=== PATIENT | female | born 1930 | race American Indian/Alaskan Native ===

== ENCOUNTER 2021-05-07 16:00 | Emergency (ER) | payer MEDICARE, OTHER ==
[2021-05-07 19:12] VITALS: BP 146/56
--- NOTE | 2021-05-07 19:26 | Emergency Department Report ---
ED General Adult HPI - General Stated complaint: BILATERAL HIP PAIN Time Seen by Provider: 05/07/21 19:25 - History of Present Illness Initial comments: Patient presents secondary to intermittent bilateral hip pain. This is been intermittent and subacute. She states that she sometimes has pain and sometimes not. Today, she actually states that she feels very well. Her friends and family told her that she could not get seen because of her age and that she "could have something wrong." Patient states that currently, she just like to go home. She has not been having chest pain or shortness of breath. She has no back pain. There is no history of trauma. Pain is occasional in the hips and aching in nature. It is worse when she ambulates. But this does not happen every day or even every week. When she has the pain, it does not radiate or migrate. Again, she is not having pain today. ED Review of Systems ROS: Stated complaint: BILATERAL HIP PAIN Other details as noted in HPI Comment: All other systems reviewed and negative Constitutional: denies: fever Eyes: denies: eye pain ENT: denies: throat pain Respiratory: denies: cough Cardiovascular: denies: chest pain Endocrine: denies: unexplained weight loss Gastrointestinal: denies: abdominal pain Genitourinary: denies: dysuria Musculoskeletal: denies: back pain Skin: denies: rash Neurological: denies: headache Hematological/Lymphatic: denies: easy bruising ED Past Medical Hx - Past Medical History Previous Medical History?: No - Family History Family history: no significant ED Physical Exam - General Limitations: No Limitations, Other (Frail. Pulse ox is noted and normal. Is not hypoxic.) General appearance: alert, in no apparent distress - Head Head exam: Present: atraumatic, normocephalic, normal inspection - Eye Eye exam: Present: normal appearance, EOMI. Absent: scleral icterus - ENT ENT exam: Present: normal exam, normal external ear exam - Neck Neck exam: Present: normal inspection. Absent: meningismus - Respiratory Respiratory exam: Present: normal lung sounds bilaterally. Absent: respiratory distress - Cardiovascular Cardiovascular Exam: Present: regular rate, normal rhythm - GI/Abdominal GI/Abdominal exam: Present: soft. Absent: tenderness, pulsatile mass - Extremities Exam Extremities exam: Present: normal inspection, full ROM. Absent: tenderness, calf tenderness - Back Exam Back exam: Absent: tenderness, CVA tenderness (R), CVA tenderness (L) - Neurological Exam Neurological exam: Present: alert, oriented X3, normal gait, reflexes normal. Absent: motor sensory deficit - Psychiatric Psychiatric exam: Present: normal affect, normal mood - Skin Skin exam: Present: warm, dry ED Course Vital Signs 05/07/21 18:58 Temperature 98.5 F Respiratory 18 Rate Blood Pressure 146/56 - Reevaluation(s) Reevaluation #1: 05/07/21 19:33 Patient was seen and discharged. Old records not available. 05/07/21 19:34 ED Medical Decision Making - Medical Decision Making Patient presented secondary to family request. She has been having intermittent pain in both hips. Certainly, there is no evidence of acute fracture considering the fact that she has not fallen and is ambulatory. She does not have symptoms suggestive of any type of septic arthritis. There is no back pain or tenderness suggestive of referred pain from the back. Patient has no pain or swelling in the legs that would suggest DVT. Patient was told to take Tylenol for pain and referred to PCP for follow-up. Critical Care Time: No Critical care attestation.: If time is entered above; I have spent that time in minutes in the direct care of this critically ill patient, excluding procedure time. ED Disposition Clinical Impression: Hip pain, bilateral Disposition: 01 HOME / SELF CARE / HOMELESS Is pt being admited?: No Does the pt Need Aspirin: No Condition: Stable Instructions: Hip Pain, How to Use Cold Therapy, [id number], Pain Without a Known Cause Additional Instructions: Rest the hips. Use Tylenol for pain. Follow-up with your regular doctor for recheck and further management. Referrals: PRIMARY MD JEANNE [Referring] - 3-5 Days JOEL GRIFFIN MD [Staff Physician] - 3-5 Days
== END 2021-05-07 19:45 | disposition home or self-care (01) ==
LOC: ED 16:00
DX: M25.552 Pain in left hip (principal); M25.551 Pain in right hip
CPT/HCPCS: 99281